=== PATIENT | female | born 1985 | race Hispanic/Latino ===

== ENCOUNTER 2022-01-16 23:45 | Emergency (ER) | payer SELFPAY ==
[~2022-01-16] VITALS: Ht 160 cm; Wt 63.5 kg
[2022-01-17] MEDS ORDERED: CEPHALEXIN500 M1 PO (00:42)
[2022-01-17] MEDS ORDERED: HYDROCODON-ACE1 EA10 PO (00:42)
== END 2022-01-17 01:05 | disposition home or self-care (01) ==
LOC: ED 23:45
DX: S61.412A Laceration without foreign body of left hand, initial encounter (principal); Z23 Encounter for immunization; W25.XXXA Contact with sharp glass, initial encounter
CPT/HCPCS: 12001; 73130; 90471; 90715; 99283-25; A9270

== ENCOUNTER 2022-01-25 04:20 | Emergency (ER) | payer OTHER ==
[~2022-01-25] VITALS: Ht 160 cm; Wt 63.5 kg
[~2022-01-25 04:20] MED LIST: CEPHALEXIN500 M1 PO; HYDROCODON-ACE1 EA10 PO
--- OUTSIDE RECORDS SUMMARY | 2022-01-25 04:23 | XMS ---
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 [facility] has no Care Guidelines for this patient. [facility] (12 MO.) [facility] NOTE: Visits indicate total known visits. ED/C VISIT TRACKING (12 MO.) [facility] 04[facility] COMPLAINT: - LEFT HAND INJ 01/16/2022 23:[address] [facility] [place] TYPE: Emergency COMPLAINT: - LACERATION DIAGNOSES: - Laceration without foreign body of left hand, initial encounter - Encounter for immunization - Contact with sharp glass, initial encounter INPATIENT VISIT TRACKING (12 MO.) No inpatient visits to display in this time frame [email or web address]
[2022-01-25] MEDS ORDERED: BACTRIM DS TAB1 EACH PO (05:54)
== END 2022-01-25 06:37 | disposition home or self-care (01) ==
LOC: ED 04:20
DX: L08.9 Local infection of the skin and subcutaneous tissue, unspecified (principal); S61.412D Laceration without foreign body of left hand, subsequent encounter; W25.XXXD Contact with sharp glass, subsequent encounter
CPT/HCPCS: 73200; 84703; 99283-25

== ENCOUNTER 2023-04-09 16:09 | Emergency (ER) | payer OTHER ==
[~2023-04-09] VITALS: Ht 160 cm; Wt 66.8 kg
[~2023-04-09 16:09] MED LIST changes: +BACTRIM DS TAB1 EACH PO
[2023-04-09 18:09] LABS: BILIRUBIN, URINE NEGATIVE (negative); BLOOD/HGB, URINE NEGATIVE (Negative); KETONE, URINE NEGATIVE (Negative); LEUK ESTERASE, URINE NEGATIVE (negative); NITRITE, URINE NEGATIVE (negative); PH, URINE 6.5 (5-7)
[2023-04-09 18:13] LABS: BACTERIA, URINE NONE SEEN /hpf (negative); CASTS, URINE NONE SEEN \\lpf; COLLECTION TYPE, URINE CLEAN CATCH; CRYSTALS, URINE NONE SEEN (0-1+); EPITHELIAL CELLS, URINE NONE SEEN /lpf (0-1+); RED BLOOD CELLS, URINE 0-1 /hpf (0-5); REFLEX CULTURE, URINE No (No)
[2023-04-09 18:43] VITALS: BP 131/94
== END 2023-04-09 18:44 | disposition home or self-care (01) ==
LOC: ED 16:09
PROVIDERS: Emergency Medicine
DX: S16.1XXA Strain of muscle, fascia and tendon at neck level, initial encounter (principal); T14.8XXA Other injury of unspecified body region, initial encounter; R07.89 Other chest pain; R10.9 Unspecified abdominal pain; V89.2XXA Person injured in unspecified motor-vehicle accident, traffic, initial encounter
CPT/HCPCS: 71045; 72040; 81001; 99284-25